=== PATIENT | female | born 1970 | race Caucasian/White ===

== ENCOUNTER 2016-08-11 18:45 | Emergency (ER) | payer MEDICAID ==
[2016-08-11 18:54] VITALS: RESP 16; TEMP 97.7
--- NOTE | 2016-08-11 19:09 | EDPHY ---
H & P Time Seen by Provider: 08/11/16 19:00 HPI/ROS: CHIEF COMPLAINT: Right knee pain HISTORY OF PRESENT ILLNESS: Patient is a 45-year-old female who presents emergency department with right knee pain. She states that yesterday her dogs pulled her while she was walking them. She ran her right lateral knee into a metal picnic bench. Since that time she has had pain on the lateral aspect of her knee. It is worse with movement and ambulation. She describes her pain as moderate to severe. No numbness or tingling. No previous knee injury. REVIEW OF SYSTEMS: Negative Past Medical/Surgical History: Hepatitis-C, fibromyalgia, hypothyroidism, lupus, MS, endometriosis Past surgical history: Appendectomy, cholecystectomy, hysterectomy Smoking Status: Current every day smoker Physical Exam: Vitals noted General Appearance: Alert and no distress. Head: Pupils equal. Normal. Respiratory: No respiratory distress. Cardiac: regular rate and rhythm. Extremities: her right lower extremity appears normal. There is no swelling or bruising. She has bilateral knee tenderness to palpation. No crepitus. Patellar tenderness. She has discomfort both anterior-posterior draw signs. No instability is noted. Skin: No rashes or lesions. Neuro: Alert. Normal mood and affect. Constitutional: Initial Vital Signs Temperature (C) 36.5 C 08/11/16 18:51 Heart Rate 94 08/11/16 18:51 Respiratory Rate 16 08/11/16 18:51 Blood Pressure 139/74 H 08/11/16 18:51 O2 Sat (%) 95 08/11/16 18:51 O2 Delivery Mode Room Air Allergies/Adverse Reactions: No Known Allergies Allergy (Verified 08/11/16 18:50) Home Medications: Medication Instructions Recorded Baclofen 06/17/15 Gabapentin 06/17/15 traMADOL 06/17/15 oxyCODONE/APAP 5/325 [Percocet 1 - 2 tab PO Q4PRN PRN #7 tab 08/11/16 5/325 (*)] Medical Decision Making - Diagnostics Imaging Results: Imaging Impressions Knee X-Ray 08/11/16 19:13 Impression: Negative right knee radiographs. ED Course/Re-evaluation: I discussed possible etiologies with the patient. I answered all her questions. X-ray of the right knee was ordered. Knee x-ray: No acute disease noted. Please refer the dictated report. I discussed the results with the patient. I answered all her questions. A knee immobilizer was placed. She was neurovascularly intact distally post knee brace placement. She was given crutches. She was instructed on use. She will follow up with Orthopedics. She will return with worsening symptoms. Differential Diagnosis: My differential includes but is not limited to fracture, dislocation, ligamentous injury, contusion, strain Departure - Departure Disposition: Home, Routine, Self-Care Clinical Impression: Right knee injury Qualifiers: Encounter type: initial encounter Qualified Code(s): S89.91XA - Unspecified injury of right lower leg, initial encounter Condition: Good Instructions: Knee Pain (ED), Knee Immobilizer (ED) Additional Instructions: Your x-ray was normal. Use your splint and crutches as needed. Weightbear as tolerated. Follow up with Orthopedics. Referrals: Izabella Delgadillo NP [Primary Care Provider] - As per Instructions Howard Roberson MD [Medical Doctor] - 5-7 days, call for appt. Prescriptions: oxyCODONE/APAP 5/325 [Percocet 5/325 (*)] 1 - 2 tab PO Q4PRN PRN #7 tab PRN Reason: For Moderate To Severe Pain
[2016-08-11 20:36] VITALS: BP 124/71; PULSE 67; O2SAT 97
== END 2016-08-11 20:36 | disposition home or self-care (01) ==
DX: S89.91XA Unspecified injury of right lower leg, initial encounter (principal); F17.200 Nicotine dependence, unspecified, uncomplicated; W01.198A Fall on same level from slipping, tripping and stumbling with subsequent striking against other object, initial encounter